=== PATIENT | male | born 1995 | race African-American/Black ===

== ENCOUNTER 2018-11-24 15:11 | Emergency (ER) | payer SELFPAY ==
[~2018-11-24] VITALS: Ht 182.9 cm; Wt 77.0 kg
[2018-11-24] MEDS ORDERED: IBUPROFEN 800MG TABLET PO ONE (17:00)
[2018-11-24 18:20] VITALS: BP 121/71
== END 2018-11-24 18:20 | disposition home or self-care (01) ==
LOC: ER 15:11
DX: M54.2 Cervicalgia (principal); M54.89 Other dorsalgia; M79.631 Pain in right forearm; J45.909 Unspecified asthma, uncomplicated; V43.52XA Car driver injured in collision with other type car in traffic accident, initial encounter; Y93.89 Activity, other specified; Y92.488 Other paved roadways as the place of occurrence of the external cause
CPT/HCPCS: 72040; 72100; 73090; 99283